=== PATIENT | female | born 1975 | race African-American/Black ===

== ENCOUNTER 2017-11-23 01:16 | Emergency (ER) | payer BC, MEDICAID ==
[2017-11-23] MEDS: IBUPROFEN 600 MG TAB PO (02:20)
== END 2017-11-23 02:51 | disposition home or self-care (01) ==
LOC: FTE 01:16
DX: K08.89 Other specified disorders of teeth and supporting structures (principal); Z87.891 Personal history of nicotine dependence
CPT/HCPCS: 99283